=== PATIENT | female | born 1970 | race African-American/Black ===

== ENCOUNTER 2017-08-20 16:48 | Emergency (ER) | payer OTHER ==
[~2017-08-20] VITALS: Ht 165.1 cm; Wt 132.0 kg
[~2017-08-20 16:48] MED LIST: HYDR-3533 PO; OMEP20TA39 PO
[2017-08-20 16:51] VITALS: BP 124/66; PULSE 101; RESP 16; TEMP 98.1; O2SAT 98
--- NOTE | 2017-08-20 17:01 | PD ---
HPI Chief Complaint: Skin Problem Time Seen by Provider: 16:54 Travel History International Travel<30 days: No Contact w/Intl Traveler<30days: No Traveled to known affect area: No History of Present Illness HPI left lower extremity red streak noted over last day or so, itchy and slightly painful with walking over the [place] area (2/-4/10) but no calf pain, no thigh pain and no pain behind left knee... no alleviating/aggravating factors, no assoc fever/n/v/d/abd pain/cp/sargent PFSH Past Medical History Diminished Hearing: No ?: Not Tubal Ligation: Yes Past Surgical History Hysterectomy: Yes Social History Alcohol Use: No Tobacco Use: No Substance Use: No Allergies-Medications (Allergen,Severity, Reaction): Coded Allergies: No Known Allergies (Verified Adverse Reaction, Unknown, 08/20/17) Reported Meds & Prescriptions Reported Meds & Active Scripts Active Reported Vitamin D-1000 (Cholecalciferol) 1,000 Unit Tab 1,000 Units PO DAILY Review of Systems Except as stated in HPI: all other systems reviewed are Neg General / Constitutional: No: Fever Eyes: No: Visual changes HENT: No: Headaches Cardiovascular: No: Chest Pain or Discomfort Respiratory: No: Shortness of Breath Gastrointestinal: No: Abdominal Pain Genitourinary: No: Dysuria Musculoskeletal: No: Pain Skin: Positive Rash, Positive Itching Neurologic: No: Weakness Psychiatric: No: Depression Endocrine: No: Polydipsia Hematologic/Lymphatic: No: Easy Bruising Physical Exam Narrative GENERAL: SKIN: Warm and dry. near anterior ankle and distal tibfib patient has erythematous,warm cellulitic lesion, no streaking, no HEAD: Atraumatic. Normocephalic. EYES: Pupils equal and round. No scleral icterus. No injection or drainage. ENT: No nasal bleeding or discharge. Mucous membranes pink and moist. NECK: Trachea midline. No JVD. CARDIOVASCULAR: Regular rate and rhythm. RESPIRATORY: No accessory muscle use. Clear to auscultation. Breath sounds equal bilaterally. GASTROINTESTINAL: Abdomen soft, non-tender, nondistended. Hepatic and splenic margins not palpable. MUSCULOSKELETAL: Extremities without clubbing, cyanosis, or edema. No obvious deformities. NEUROLOGICAL: Awake and alert. No obvious cranial nerve deficits. Motor grossly within normal limits. Five out of 5 muscle strength in the arms and legs. Normal speech. PSYCHIATRIC: Appropriate mood and affect; insight and judgment normal. Data Data Last Documented VS Vital Signs Date Time Temp Pulse Resp B/P (MAP) Pulse Ox O2 Delivery O2 Flow Rate FiO2 08/20/17 16:51 98.1 101 16 124/66 (85) 98 Orders Orders Diphenhydramine 2%/Zinc Cream (Benadryl (08/20/17 17:15) Clindamycin Inj (Cleocin Inj) (08/20/17 17:15) MDM Medical Decision Making Medical Screen Exam Complete: Yes Emergency Medical Condition: Yes Medical Record Reviewed: Yes Differential Diagnosis cellulitis v lymphngitis v dvt Narrative Course upon examination without unilateral edema noted that was out of proportion in comparison to other extremity patient is (low risk based on dvt risk factors) will test outpatient with ultrasound. will treat with im abx and benadryl cream will d/c home Diagnosis Primary Impression: Cellulitis Qualified Codes: L03.116 - Cellulitis of left lower limb Patient Instructions: Cellulitis (ED), General Instructions Additional Instructions: make sure you follow up with dr jannet alarcon for results Disposition: 01 DISCHARGE HOME Condition: Stable Randall Browning MD Aug 20, 2017 17:01
[2017-08-20] MEDS ORDERED: VITA1000 PO (17:03)
[2017-08-20] MEDS ORDERED: BACT800T5 PO (17:13)
[2017-08-20] MEDS ORDERED: CLINDAMYCIN PHOS 300 MG/2 ML VIAL IM ONE (17:15)
[2017-08-20] MEDS ORDERED: diphenhydrAMINE HCL 2%/ZINC ACETATE 0.1% CREAM 30 APPLIC/30 GM TUBE TOPICAL ONE (17:15)
[2017-08-20] MEDS ORDERED: CLINDAMYCIN PHOS 600 MG/4 ML VIAL IM ONE (17:30)
== END 2017-08-20 18:10 | disposition home or self-care (01) ==
LOC: PHEFT 16:48
DX: L03.116 Cellulitis of left lower limb (principal)
CPT/HCPCS: 96372

== ENCOUNTER 2017-08-23 09:10 | Emergency (ER) | payer OTHER ==
[~2017-08-23] VITALS: Ht 165.1 cm; Wt 130.0 kg
[~2017-08-23 09:10] MED LIST changes: +BACT800T5 PO; -HYDR-3533 PO; -OMEP20TA39 PO; +VITA1000 PO
[2017-08-23 09:12] VITALS: BP 169/88; PULSE 72; RESP 14; TEMP 98.3; O2SAT 98
--- NOTE | 2017-08-23 09:33 | PD ---
HPI Chief Complaint: Skin Problem Time Seen by Provider: 09:22 Travel History International Travel<30 days: No Contact w/Intl Traveler<30days: No Traveled to known affect area: No History of Present Illness HPI 47-year-old female states the lesion to her left lower leg has not gotten bigger but she has developed more lesions with one to the front of her left leg , one to right thigh and right forearm. She states that the areas itch. She denies any fever, warmth to the area or other concurrent complaints. She states she has been taking the antibiotics like she should. She states she has not had a chance to follow with her primary care physician yet. She states she follows with her doctor regularly. Quality is itchy. Location is now multiple lesions. PFSH Past Medical History Diminished Hearing: No ?: Not Tubal Ligation: Yes Past Surgical History Hysterectomy: Yes Social History Alcohol Use: Yes Tobacco Use: No Substance Use: No Allergies-Medications (Allergen,Severity, Reaction): Coded Allergies: No Known Allergies (Verified Allergy, Unknown, 08/20/17) Reported Meds & Prescriptions Reported Meds & Active Scripts Active Bactrim DS (Sulfamethoxazole-Trimethoprim) 800-160 Mg Tab 1 Tab PO BID Reported Vitamin D-1000 (Cholecalciferol) 1,000 Unit Tab 1,000 Units PO DAILY Review of Systems Except as stated in HPI: all other systems reviewed are Neg Physical Exam Narrative GENERAL: Well-nourished, well-developed patient. SKIN: There is to left lower leg above ankle without joint involvement erythematous rash without associated warmth it does not extend up leg, to left upper thigh there is a small subcentimeter area of redness without associated warmth as well, finally to right lower forearm there is a subcentimeter erythematous lesion without warmth noted as well HEAD: Normocephalic and atraumatic. EYES: No injection or drainage. ENT: No nasal drainage noted. NECK: Supple, trachea midline. CARDIOVASCULAR: Regular rate and rhythm RESPIRATORY: Breath sounds equal bilaterally. No accessory muscle use. GASTROINTESTINAL: Abdomen soft, non-tender, nondistended. EXTREMITIES: No edema. No calf pain, neurovascularly intact, compartments soft , no joint pain NEUROLOGICAL: Awake and alert. Motor and sensory grossly within normal limits. Normal speech. Data Data Last Documented VS Vital Signs Date Time Temp Pulse Resp B/P (MAP) Pulse Ox O2 Delivery O2 Flow Rate FiO2 08/23/17 09:41 83 18 08/23/17 09:12 98.3 169/88 (115) 98 Orders Orders Complete Blood Count With Diff (08/23/17 09:30) Basic Metabolic Panel (Bmp) (08/23/17 09:30) Iv Access Insert/Monitor (08/23/17 09:30) Hydroxyzine Pamoate (Vistaril) (08/23/17 10:15) Labs Laboratory Tests Test 08/23/17 09:37 White Blood Count 6.4 TH/MM3 Red Blood Count 5.08 MIL/MM3 Hemoglobin 12.7 GM/DL Hematocrit 39.5 % Mean Corpuscular Volume 77.8 FL Mean Corpuscular Hemoglobin 25.0 PG Mean Corpuscular Hemoglobin Concent 32.1 % Red Cell Distribution Width 15.0 % Platelet Count 193 TH/MM3 Mean Platelet Volume 9.2 FL Neutrophils (%) (Auto) 49.1 % Lymphocytes (%) (Auto) 37.0 % Monocytes (%) (Auto) 9.5 % Eosinophils (%) (Auto) 3.5 % Basophils (%) (Auto) 0.9 % Neutrophils # (Auto) 3.2 TH/MM3 Lymphocytes # (Auto) 2.4 TH/MM3 Monocytes # (Auto) 0.6 TH/MM3 Eosinophils # (Auto) 0.2 TH/MM3 Basophils # (Auto) 0.1 TH/MM3 CBC Comment DIFF FINAL Differential Comment Blood Urea Nitrogen 11 MG/DL Creatinine 0.98 MG/DL Random Glucose 98 MG/DL Calcium Level 8.5 MG/DL Sodium Level 139 MEQ/L Potassium Level 4.3 MEQ/L Chloride Level 106 MEQ/L Carbon Dioxide Level 25.8 MEQ/L Anion Gap 7 MEQ/L Estimat Glomerular Filtration Rate 74 ML/MIN [facility] Medical Decision Making Medical Screen Exam Complete: Yes Emergency Medical Condition: Yes Medical Record Reviewed: Yes (past history confirm, recent note reviewed on Bactrim) Interpretation(s) CBC & BMP Diagram 08/23/17 09:37 Calcium Level 8.5 Differential Diagnosis Vasculitis, allergic, atypical cellulitic Narrative Course We'll check basic blood work and reevaluate. Patient's rash is pruritic and now has brought her distribution. Does not appear infectious in nature. Patient is clinically well-appearing with normal vitals and if her basic blood work is normal she can follow with a primary care physician for additional patient testing as an outpatient. She agrees to this plan of care. labs normal, patient has pruritic erythematous macular rash with no current cellulitic component, she has no mucous membrane involvement or other systemic symptoms. Patient denies any new complaints and states that they are feeling better after Vistaril given for additional itching. all questions answered. Patient knows that follow up is incumbent on them and to return to the emergency room immediately if new or worsening symptoms develop. Patient given strict return precautions, vitals reviewed and are normal, agrees to further workup as an outpatient. Diagnosis Primary Impression: Rash Patient Instructions: General Instructions Additional Instructions: vistaril as needed for itching, follow with primary next 1-2 days Med/Other Pt SpecificInfo: Prescription(s) given Scripts Hydroxyzine Pamoate (Vistaril) 25 Mg Cap 25 MG PO TID Y for ITCHING, #10 CAP 0 Refills Prov: Amanda Mcqueen MD 08/23/17 Disposition: 01 DISCHARGE HOME Condition: Stable Amanda Mcqueen MD Aug 23, 2017 09:33
[2017-08-23 09:46] LABS: AUTOMATED NEUTROPHIL # 3.2 TH/MM3 (1.8-7.7); BASOPHIL # 0.1 TH/MM3 (0-0.2); BASOPHIL % 0.9 % (0.0-2.0); EOSINOPHIL # 0.2 TH/MM3 (0-0.4); EOSINOPHIL % 3.5 % (0.0-4.0); HEMATOCRIT 39.5 % (35.0-46.0); HEMO FLAGS DIFF FINAL; LYMPHOCYTE # 2.4 TH/MM3 (1.0-4.8); MEAN CELL VOLUME 77.8 FL (80.0-100.0); MEAN CORPUSCULAR HGB CONC 32.1 % (32.0-36.0); MONO % 9.5 % (0.0-8.0); NEUT % 49.1 % (16.0-70.0); PLATELET COUNT 193 TH/MM3 (150-450); RED BLOOD COUNT 5.08 MIL/MM3 (4.00-5.30); WHITE BLOOD COUNT 6.4 TH/MM3 (4.0-11.0)
[2017-08-23 10:00] LABS: BICARBONATE 25.8 MEQ/L (21.0-32.0); POTASSIUM 4.3 MEQ/L (3.5-5.1)
[2017-08-23] MEDS ORDERED: hydrOXYzine PAMOATE 25 MG CAP PO ONE (10:15)
[2017-08-23] MEDS ORDERED: VIST25CA PO (11:02)
== END 2017-08-23 11:25 | disposition home or self-care (01) ==
LOC: NEPE 09:10
DX: R21 Rash and other nonspecific skin eruption (principal)
CPT/HCPCS: 80048; 85025; 99285; Q0177

== ENCOUNTER 2017-12-14 18:26 | Emergency (ER) | payer OTHER ==
[~2017-12-14] VITALS: Ht 165.1 cm; Wt 140.0 kg
[~2017-12-14 18:26] MED LIST changes: +VIST25CA PO
[2017-12-14 18:38] VITALS: BP 138/90; PULSE 79; RESP 20; TEMP 97.8; O2SAT 99
--- NOTE | 2017-12-14 19:17 | PD ---
HPI Chief Complaint: Musculoskeletal Complaint Time Seen by Provider: 18:57 Travel History International Travel<30 days: No Contact w/Intl Traveler<30days: No Traveled to known affect area: No History of Present Illness HPI 47-year-old female here with left lateral ankle pain after she had a twisting injury while at work. She denies paresthesia or weakness of the extremity. She has pain with weightbearing and range of motion. Symptoms severity is moderate. Slightly alleviated with rest. PFSH Past Medical History Medical History: Denies Significant Hx Diminished Hearing: No Tetanus Vaccination: > 5 Years Influenza Vaccination: No ?: Not Tubal Ligation: Yes Past Surgical History Hysterectomy: Yes Social History Alcohol Use: Yes (on occasion) Tobacco Use: No Substance Use: No Allergies-Medications (Allergen,Severity, Reaction): Coded Allergies: No Known Allergies (Verified Allergy, Unknown, 12/14/17) Reported Meds & Prescriptions Reported Meds & Active Scripts Active Vistaril (Hydroxyzine Pamoate) 25 Mg Cap 25 Mg PO TID PRN Bactrim DS (Sulfamethoxazole-Trimethoprim) 800-160 Mg Tab 1 Tab PO BID Reported Vitamin D-1000 (Cholecalciferol) 1,000 Unit Tab 1,000 Units PO DAILY Review of Systems Except as stated in HPI: all other systems reviewed are Neg Physical Exam Narrative GENERAL: Alert well-appearing 47-year-old female SKIN: Warm and dry. HEAD: Normocephalic. Atraumatic EYES: No injection or drainage. NECK: Supple MUSCULOSKELETAL: No cyanosis, or edema. Left lower extremity: +TTP lateral malleolus. No deformity. Joint is stable. 2+ distal pulses. Normal sensation. Brisk cap refill. Data Data Last Documented VS Vital Signs Date Time Temp Pulse Resp B/P (MAP) Pulse Ox O2 Delivery O2 Flow Rate FiO2 12/14/17 18:38 97.8 79 20 138/90 (106) 99 Orders Orders Ankle, Complete ([id number]) (12/14/17 ) Ed Discharge Order (12/14/17 20:17) MDM Medical Decision Making Medical Screen Exam Complete: Yes Emergency Medical Condition: Yes Differential Diagnosis Ankle sprain, ankle fracture, contusion Narrative Course 47-year-old female with left ankle pain after a mild twisting injury while at work. She is ambulatory. The extremity is neurovascularly intact x-ray is negative for fracture. Alvin wrap applied and crutches offered. Diagnosis Primary Impression: Ankle sprain Qualified Codes: S93.402A - Sprain of unspecified ligament of left ankle, initial encounter Referrals: Primary Care Physician Departure Forms: Tests/Procedures, Work Release Enter return to work date: Dec 17, 2017 Additional Instructions: Ice and elevate the extremity. Alvin wrap as directed. Tylenol or ibuprofen for pain. Follow-up with her primary doctor. Disposition: 01 DISCHARGE HOME Condition: Stable Elisha Sosa Dec 14, 2017 19:17
--- NOTE | 2017-12-14 20:09 | RADRPT ---
EXAM DATE/TIME: 12/14/2017 19:21 [place] COMPARISON: No previous studies available for comparison. INDICATIONS : Left lateral ankle pain after slipping and falling and twisting ankle. MEDICAL HISTORY : None. SURGICAL HISTORY : None. ENCOUNTER: Initial ACUITY: 1 day PAIN SCORE: 5/10 LOCATION: Left ankle FINDINGS: Three view exam was performed of the left ankle. The bony structures are in normal alignment. No ev idence of fracture, dislocation, or soft tissue swelling. The ankle mortise is intact. No radiopaqu e foreign bodies are seen. Bony mineralization is normal. CONCLUSION: 1. No acute bony abnormality. Shaheen Mejia MD on December 14, 2017 at 20:06 Board Certified Radiologist. This report was verified electronically.
== END 2017-12-14 20:52 | disposition home or self-care (01) ==
LOC: PHEFT 18:26
DX: S93.402A Sprain of unspecified ligament of left ankle, initial encounter (principal); X50.1XXA Overexertion from prolonged static or awkward postures, initial encounter
CPT/HCPCS: 73610; 99283